=== PATIENT | male | born 1950 | race Two or more races ===

== ENCOUNTER 2025-03-21 06:59 | Inpatient (IN) | payer OTHER, SELFPAY ==
[2025-03-07 11:27] LABS: Hematocrit 40.3 % (39.0-52.0); Hemoglobin 13.5 g/dL (13.0-18.0); Mean Corp Hgb Conc. 33.5 g/dL (33.0-37.0); Mean Corpuscular Volume 92.2 fL (80.0-94.0); Platelet Count 259 10^3/uL (130-400); Red Cell Dist. Width 13.4 % (11.5-14.5)
[2025-03-07 11:38] LABS: Glycohemoglobin (HgbA1c) 5.8 % (4.0-5.9)
[2025-03-07 11:42] LABS: ALT (SGPT) 33 U/L (0-50); AST (SGOT) 27 U/L (17-59); Albumin 4.6 g/dl (3.5-5.0); Alkaline Phosphatase 68 U/L (38-126); Blood Urea Nitrogen 13 mg/dl (9-20); Calcium 9.3 mg/dl (8.4-10.2); Carbon Dioxide 31 mmol/L (22-30); Chloride 100 mmol/L (98-107); Glucose 80 mg/dl (70-99); Potassium 4.4 mmol/L (3.5-5.1); Sodium 138 mmol/L (135-145); Total Protein 7.5 g/dl (6.3-8.2); eGFR > 60.00
[2025-03-07 13:55] VITALS: BMI 27.4
[2025-03-08 16:17] VITALS: BMI 27.4
--- NOTE | 2025-03-15 15:11 | CM ---
Demographics: confirmed
Living situation: lives with
Support Person Post Operatively:
History of
VN: yes, not currently on service
SNF: no
Outpatient: [facility] appointment made for 03/23
Has patient purchased required equipment: waker, cane, raised toilet seat
PCP: [facility]
Pharmacy: [facility]
Post Operative Discharge Plan: Home with , outpatient PT
[2025-03-21] VITALS (15 sets, daily range): BP systolic 59–165; BP diastolic 40–109; PULSE 70–73; O2SAT 95; BMI 27.4
[2025-03-21] MEDS: NORMOSOL-R/PLASMALYTE-A 1000 IV ×2 (07:16→12:01)
[2025-03-21] MEDS: TYLENOL 650 MG PO ×3 (07:30→16:11)
[2025-03-21] MEDS: CELEBREX 200 MG PO (07:30)
--- NOTE | 2025-03-21 07:52 | W.PN.UPDATE ---
Update Note
Progress Note Update
L hip OA s/p L MATTHEW w/ Dr Holguin 03/21/25
- s/p R MATTHEW, 05/2024, by Dr Pro
- EARLY DISCHARGE
DVT prophylaxis - resumption of Warfarin, b/l venous foot pumps
HTN - + parameters - monitor BP
First-degree AV block
PAF
Sick sinus syndrome, status post pacemaker implant, 2011, and subsequent generator change 2022
- Monitor on tele
- Continue Flecainide and Metoprolol
- OAC w/ Warfarin
GERD and remote GI ulcers - start Protonix
- No NSAIDs post-op
Ambulatory dysfunction - on fall precautions
HLD
Mild valvular disease
Chronic postnasal drip
Diverticulosis
Nephrolithiasis
Benign paroxysmal positional vertigo
TIA per records
Hypothyroidism
Prostate cancer, status post prostatectomy 2010
Bladder cancer, 2010, status post TURBT
Prediabetes, A1c 5.8
[2025-03-21 08:07] LABS: INR 1.08; PT 14.3 Sec (11.4-14.6)
[2025-03-21] MEDS: SUBLIMAZE 25 MCG IV (10:19)
[2025-03-21] MEDS: ULTRAM 50 MG PO (10:54)
--- NOTE | 2025-03-21 11:17 | PTCARENOTE ---
Patient arrived from PACU via hospital bed accompanied by [employer]'s x2. Patient denies needs at this time. Nursing assessment completed and as documented. Complains of 4-5/10 pain at left hip surgical site - Scheduled Tylenol given as per order, see
JUN. L hip aquacell C/D/I. R F/A PIV patent and intact, Normosol infusing without difficulty. at bedside and assisted with ordering meals. VSS, call lion within reach, care ongoing.
[2025-03-21] MEDS: PROTONIX 40 MG PO (12:00)
[2025-03-21] MEDS: ANCEF 5 IV (16:10)
[2025-03-21] MEDS: COUMADIN 5 MG PO (17:52)
[2025-03-21] MEDS: DECADRON 4 MG PO (20:00)
[2025-03-21] MEDS: COLACE 100 MG PO (20:00)
[2025-03-21] MEDS: TYLENOL PO ×3 (20:00→23:15)
[2025-03-21] MEDS: BACTROBAN 2% OINTMENT 1 APPLIC NASAL (20:00)
[2025-03-21] MEDS: SENOKOT 17.2 MG PO (20:00)
[2025-03-21] MEDS: LIPITOR 40 MG PO (22:57)
[2025-03-21] MEDS: TAMBOCOR 50 MG PO (22:58)
[2025-03-22] MEDS: ANCEF 5 IV (00:24)
[2025-03-22 03:05] VITALS: BP 111/61
[2025-03-22] MEDS: TYLENOL PO (03:19)
[2025-03-22] MEDS: ULTRAM 50 MG PO (05:41)
[2025-03-22 07:29] LABS: INR 1.09; PT 14.4 Sec (11.4-14.6)
[2025-03-22] MEDS: COLACE PO (07:57)
[2025-03-22] MEDS: PROTONIX PO (07:58)
[2025-03-22] MEDS: SENOKOT PO (07:58)
[2025-03-22] MEDS: BACTROBAN 2% OINTMENT 1 APPLIC NASAL (07:59)
[2025-03-22] MEDS: TAMBOCOR 100 MG PO (07:59)
[2025-03-22] MEDS: TYLENOL 650 MG PO (07:59)
[2025-03-22] MEDS: DECADRON 4 MG PO (07:59)
[2025-03-22 08:01] VITALS: BP 138/71
[2025-03-22] MEDS: TOPROL XL 25 MG PO (08:04)
[2025-03-22] MEDS: COLACE 100 MG PO (08:18)
[2025-03-22] MEDS: SENOKOT 17.2 MG PO (08:18)
[2025-03-22 08:44] VITALS: BP 121/66; BP 137/78; BP 145/81; PULSE 75; PULSE 90
--- NOTE | 2025-03-22 08:46 | CM ---
Patient is for discharge to home today with spouse and outpatient physical therapy on 03/23, patient also thinking of changing his [employer] bpm consultant and list of cardiologists in area along with phone numbers and address provided to patient.
Plan; Home today with outpatient PT, spouse to transport.
[2025-03-22 09:19] VITALS: BP 121/66; BP 137/78; BP 145/81; PULSE 72; PULSE 73; PULSE 75
--- NOTE | 2025-03-22 09:23 | W.PN.ORTHO ---
Today's Communication / Plan
-
Await PT and OT recs.
D/c this morning if remaining clinically stable.
Assessment
.
Distal Motor Intact: Yes
Dressing:
Scant incisional bleeding towards proximal end of dressing.
Assessment:
L hip OA s/p L MATTHEW w/ Dr Holguin 03/21/25
- s/p R MATTHEW, 05/2024, by Dr Pro
- EARLY DISCHARGE
DVT prophylaxis - resumption of Warfarin, b/l venous foot pumps
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 [facility]
Symptomatic orthostasis POD 0 - orthostatic VS improved w/ measures below
- S/p IVF. Oral hydration encouraged
- Minimize opioids as able
- Midodrine for SBP <120
HTN - + parameters - BPs stable as of POD 1
First-degree AV block
PAF
Sick sinus syndrome, status post pacemaker implant, 2011, and subsequent generator change 2022
- Rhythm stable on tele
- Continue Flecainide and Metoprolol
- OAC w/ Warfarin
GERD and remote GI ulcers - start Protonix
- No NSAIDs post-op
Ambulatory dysfunction - on fall precautions
HLD
Mild valvular disease
Chronic postnasal drip
Diverticulosis
Nephrolithiasis
Benign paroxysmal positional vertigo
TIA per records
Hypothyroidism
Prostate cancer, status post prostatectomy 2010
Bladder cancer, 2010, status post TURBT
Prediabetes, A1c 5.8
Plan
.
Surgery / Date: [facility] CASTRO w/ Dr Holguin 03/21/25
DVT Prophylaxis: Coumadin
Activity:
Out of bed.
PT/OT
Discharge Plan: Home w/ Outpatient PT
Subjective
.
.:
Patient resting comfortably in his bed.
L hip pain tolerable w/ minimal pain meds overnight.
Denies any new significant complaints.
Eager for potential early d/c today.
Vital Signs and Labs
.
Vital Signs and Labs:
Lab Results
03/07/25 10:57
03/07/25 10:57
Temp Pulse Resp BP Pulse Ox
97.9 F 77 16 117/77 95
03/22/25 08:01 03/22/25 08:16 03/22/25 08:01 03/22/25 08:16 03/22/25 08:01
PT 14.4 Sec (11.4-14.6) 03/22/25 06:49
INR 1.09 03/22/25 06:49
Non-invasive Hgb result: 11.5
Physical Exam
-
HEENT: No pallor, cyanosis, or jaundice. Throat clear.
NECK: Supple. No JVD.
RESPIRATORY: Lungs clear to auscultation.
CVS: S1, S2 normal. RRR.�
ABDOMEN: Soft, non-tender. No distension.
EXTREMITIES: Strength equal, no calf pain with palpation/dorsiflexion. Calves soft.
SUPER[employer]OR [employer] NURSING: AOx3. No focal deficits. route clerk grossly intact
--- NOTE | 2025-03-22 09:33 | W.DS.TRANS ---
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
-
Discharge Instructions:
Sleep Apnea Risk Intermediate
Discharge Diagnosis/Procedures L hip OA s/p L MATTHEW w/ Dr Holguin 03/21/25
Diet Regular
Additional Diets Adequate hydration, minimize opioids, and wear
TEDs stockings to prevent low blood pressure/
dizziness.
Activity As tolerated,With Walker
Driving Restrictions Not until seen by your Dr
Bathing Restrictions OK to Shower
Blood Work PT/INR 03/28/25, with results to
cardiology (Dr. Sabillon) for further Warfarin dose
adjustments.
Other Services PT
Wound Care Dressing to be removed 1 week post-surgery.
Leidy to be removed at 2 week follow-up with
surgeon's office.
Instructions:
Stand-Alone Forms: Total Hip/Knee Replacement D/C
Changes to Home Medications: Yes
Discharge Medications:
DC Medications w/original date entered in [facility]
atorvastatin 40 mg tablet 40 mg PO HS High Cholesterol 03/03/25
flecainide 50 mg tablet 50 mg PO HS Arrhythmia 03/03/25
flecainide 50 mg tablet 100 mg PO DAILY Arrhythmia 03/03/25
metoprolol succinate 25 mg tablet,extended release 24 hr 25 mg PO DAILY Blood Pressure 03/03/25
multivitamin 1 tab PO DAILY Supplement 03/03/25
mupirocin 2 % topical ointment 1 applic intranasal BID #1 tube 03/07/25
dexamethasone 4 mg tablet 4 mg PO BID Anti-inflammatory #5 tabs 03/15/25
gabapentin 300 mg capsule 300 mg PO HS neuropathic pain/sleep #10 caps 03/15/25
pantoprazole 40 mg tablet,delayed release (Protonix) 40 mg PO DAILY #30 tabs 03/15/25
prochlorperazine maleate 5 mg tablet (Compazine) 5 mg PO TID PRN nausea and vomiting #30 tabs 03/15/25
tramadol 50 mg tablet 50 - 100 mg (1 - 2 x 50 mg) PO Q6H PRN moderate-severe pain #30 tabs 03/15/25
acetaminophen 500 mg tablet (Acetaminophen Extra Strength) 1,000 mg (2 x 500 mg) PO Q6H #60 tabs 03/22/25
docusate sodium 100 mg capsule 100 mg PO BID #30 caps 03/22/25
lisinopril 10 mg tablet 10 mg PO HS Blood Pressure #1 tab 03/22/25
magnesium hydroxide 400 mg/5 mL oral suspension (Milk of Magnesia) 30 ml PO HS PRN constipation #3,780 mL 03/22/25
sennosides 8.6 mg tablet (Radha-alfredo) 17.2 mg (2 x 8.6 mg) PO BID #30 tabs 03/22/25
warfarin 5 mg tablet 5 mg PO QPM Blood clot prevention/tx #30 tabs 03/22/25
Home Medication Changes
dexamethasone 4 mg tablet 4 mg PO BID Anti-inflammatory #5 tabs 03/15/25
gabapentin 300 mg capsule 300 mg PO HS neuropathic pain/sleep #10 caps 03/15/25
pantoprazole 40 mg tablet,delayed release (Protonix) 40 mg PO DAILY #30 tabs 03/15/25
prochlorperazine maleate 5 mg tablet (Compazine) 5 mg PO TID PRN nausea and vomiting #30 tabs 03/15/25
tramadol 50 mg tablet 50 - 100 mg (1 - 2 x 50 mg) PO Q6H PRN moderate-severe pain #30 tabs 03/15/25
acetaminophen 500 mg tablet (Acetaminophen Extra Strength) 1,000 mg (2 x 500 mg) PO Q6H #60 tabs 03/22/25
docusate sodium 100 mg capsule 100 mg PO BID #30 caps 03/22/25
magnesium hydroxide 400 mg/5 mL oral suspension (Milk of Magnesia) 30 ml PO HS PRN constipation #3,780 mL 03/22/25
sennosides 8.6 mg tablet (Radha-alfredo) 17.2 mg (2 x 8.6 mg) PO BID #30 tabs 03/22/25
Pending Results: No
[2025-03-22 10:17] VITALS: BP 132/68
== END 2025-03-22 10:54 | disposition home or self-care (01) | DRG 470 ==
LOC: 2 SOUTH 06:59
PROVIDERS: Physician Assistant; ADMITTING PHYSICIAN Specialist; FAMILY PHYSICIAN Family Medicine
PROC: 0SRD06A Replacement of Left Knee Joint with Oxidized Zirconium on Polyethylene Synthetic Substitute, Uncemented, Open Approach (ICD-10-PCS; 2025-03-21)
DX: M16.12 Unilateral primary osteoarthritis, left hip (principal); I10 Essential (primary) hypertension; I48.0 Paroxysmal atrial fibrillation; Z79.01 Long term (current) use of anticoagulants; I49.5 Sick sinus syndrome; K21.9 Gastro-esophageal reflux disease without esophagitis; I44.0 Atrioventricular block, first degree; Z87.11 Personal history of peptic ulcer disease; C61 Malignant neoplasm of prostate; E03.9 Hypothyroidism, unspecified; E78.5 Hyperlipidemia, unspecified
CPT/HCPCS: 36415; 73502; 80053; 83036; 85027; 85610; 87070; 97110; 97116; 97163; 97167; 97530; 97535; C1713; C1776